=== PATIENT | female | born 1970 | race Hispanic/Latino ===

== ENCOUNTER 2022-10-18 15:13 | Emergency (ER) | payer OTHER ==
--- NOTE | 2022-10-18 15:41 | RAD REPORT ---
EXAM DESCRIPTION: CT - Head Brain Wo Cont - 10/18/2022 3:29 pm CLINICAL HISTORY: HEADACHE Headache, drowsiness COMPARISON: No comparisons TECHNIQUE: All CT scans are performed using dose optimization technique as appropriate and may inclu de automated exposure control or mA/KV adjustment according to patient size. FINDINGS: No intracranial hemorrhage, hydrocephalus or extra-axial fluid collection.No areas of brai n edema or evidence of midline shift. The paranasal sinuses and mastoids are clear. The calvarium is intact. IMPRESSION: No acute intracranial abnormality.
[2022-10-18] MEDS ORDERED: NA CHLORIDE 0.9% 1,000 ML ONE (15:50)
--- NOTE | 2022-10-18 16:21 | RAD REPORT ---
EXAM DESCRIPTION: RAD - Chest Single View - 10/18/2022 3:55 pm CLINICAL HISTORY: COUGH Chest pain. COMPARISON: No comparisons FINDINGS: Portable technique limits examination quality. The lungs are grossly clear. The heart is normal in size. No displaced fractures. IMPRESSION: No acute intrathoracic process suspected.
[2022-10-18] MEDS ORDERED: dexAMETHasone 10 MG/ML VIAL ONE (16:50)
[2022-10-18] MEDS ORDERED: MECLIZINE HCL 12.5 MG TAB ONE (16:51)
--- NOTE | 2022-10-18 16:56 | ER ---
Nurse's Notes [facility] Name: Louann Turcios Age: 52 yrs Sex: Female : 1970 Arrival Date: 10/18/2022 Time: 15:13 Bed 11 Private MD: Diagnosis: Dizziness and giddiness;Other peripheral vertigo-benign positional Presentation: 10/18 15:18 Chief complaint: Patient states: dizziness, headache, and high blood pressure x 1 week aa5 ago. Pt reports she started taking Losartan yesterday without improvement. Coronavirus screen: At this time, the client does not indicate any symptoms associated with coronavirus-19. Ebola Screen: Patient denies travel to an Ebola-affected area in the 21 days before illness onset. Initial Sepsis Screen: Does the patient meet any 2 criteria? No. Patient's initial sepsis screen is negative. Does the patient have a suspected source of infection? No. Patient's initial sepsis screen is negative. Risk Assessment: Do you want to hurt yourself or someone else? Patient reports no desire to harm self or others. Onset of symptoms was September 2022. 15:18 Method Of Arrival: Ambulatory aa5 15:18 Acuity: EPNNY 3 aa5 Triage Assessment: 17:35 Pain: Also complains of nausea. tf2 17:35 General: Behavior is calm. tf2 17:35 Headache History: The patient has had previous headaches and this one is different than tf2 previous episodes. General: Appears in no apparent distress. Pain: Pain currently is 5 out of 10 on a pain scale. Pain began gradually. Historical: - Allergies: 15:20 No Known Allergies; aa5 - Home Meds: 15:20 losartan 25 mg oral tablet [Active]; aa5 - PMHx: 15:20 Hypertensive disorder; aa5 - PSHx: 15:20 section; aa5 - Immunization history:: Adult Immunizations unknown. - Social history:: Smoking status: Patient denies any tobacco usage or history of. Screenin:42 [facility] ED Fall Risk Assessment (Adult) History of falling in the last 3 months, tf2 including since admission No falls in past 3 months (0 pts) Confusion or Disorientation No (0 pts) Intoxicated or Sedated No (0 pts) Impaired Gait No (0 pts) Mobility Assist Device Used No (0 pt) Altered Elimination No (0 pt) Score/Fall Risk Level 0 - 2 = Low Risk Oriented to surroundings, Maintained a safe environment, Educated pt \T\ family on fall prevention, incl call for assistance when getting out of bed. 17:35 Abuse screen: Denies threats or abuse. Denies injuries from another. Nutritional tf2 screening: No deficits noted. Tuberculosis screening: No symptoms or risk factors identified. Assessment: 15:42 General: Appears in no apparent distress. Pain: Complains of pain in headache Quality tf2 of pain is described as aching, Is continuous. Neuro: Reports dizziness, since days ago. Cardiovascular: No deficits noted. Respiratory: No deficits noted. GI: No deficits noted. : No deficits noted. EENT: No deficits noted. Derm: No deficits noted. Musculoskeletal: No deficits noted. Vital Signs: 15:18 BP 133 / 96; Pulse 69; Resp 16 S; Temp 97.8(TE); Pulse Ox 96% on R/A; Weight 56.25 kg aa5 (R); Height 5 ft. 0 in. (R); 15:42 BP 127 / 81; Pulse 65; Resp 16; Pulse Ox 100% on R/A; tf2 17:33 BP 110 / 76; Pulse 66; Resp 16; Pulse Ox 100% on R/A; tf2 15:18 Body Mass Index 24.22 (56.25 kg, 152.4 cm) aa5 [place] Coma Score: 15:42 Eye Response: spontaneous(4). Motor Response: obeys commands(6). Verbal Response: tf2 oriented(5). Total: 15. ED Course: 15:17 Patient arrived in ED. im 15:17 Dayo Pardees MD is Attending Physician. carly 15:18 Arm band placed on. aa5 15:19 Triage completed. aa5 15:23 Tatyana Vidal, FARIBA is Primary Nurse. tf2 15:30 CT Head Brain wo Cont In Process Unspecified. EDMS 15:42 No apparent distress. tf2 15:42 Patient has correct armband on for positive identification. Bed in low position. Call tf2 light in reach. Side rails up X 1. Provided Education on: procedures and medications being given. 15:42 No provider procedures requiring assistance completed. Inserted saline lock: 20 gauge tf2 in right antecubital area, using aseptic technique. 15:56 XRAY Chest (1 view) In Process Unspecified. EDMS 16:54 Hillary Grady MD is Referral Physician. [facility] 17:34 IV discontinued, intact, bleeding controlled, Pressure dressing applied. tf2 Administered Medications: 15:41 Drug: NS 0.9% IV 1000 ml Route: IV; Rate: 125 ml/hr; Site: left antecubital; tf2 17:23 Follow up: IV Status: Completed infusion tf2 16:45 Drug: Decadron - Dexamethasone IVP 10 mg Route: IVP; Site: right antecubital; tf2 17:22 Follow up: Response: No adverse reaction tf2 16:46 Drug: Meclizine PO 50 mg Route: PO; tf2 17:22 Follow up: Response: No adverse reaction tf2 Medication: 15:42 VIS not applicable for this client. tf2 Outcome: 16:55 Discharge ordered by . [facility] 17:34 Discharged to home ambulatory. tf2 17:34 Condition: stable 17:34 Discharge instructions given to patient, Instructed on discharge instructions, follow up and referral plans. medication usage, Demonstrated understanding of instructions, follow-up care, medications, Prescriptions given X 3. 17:36 Patient left the ED. tf2 Signatures: Dispatcher [employer] Dayo Hair MD MD cha Calderon, Audri, RN RN [email or web address] Luz Elena Felix Traci, RN RN tf2
--- NOTE | 2022-10-18 16:56 | EDPHYS ---
Physician Documentation [facility] Name: Louann Turcios Age: 52 yrs Sex: Female : 1970 Arrival Date: 10/18/2022 Time: 15:13 Bed 11 Private MD: ED Physician Dayo Paredes HPI: 10/18 16:34 This 52 yrs old Female presents to ER via Ambulatory with complaints of carly Dizziness, Headache, BLOOD PRESSURE ISSUE. 16:34 The patient presents with dizziness, sense of spinning. Onset: The symptoms/episode carly began/occurred 1 week(s) ago. Context: occurred at a hospital. Modifying factors: The symptoms are alleviated by closing eyes, holding head still, the symptoms are aggravated by movement of head, standing up, changing position. Associated signs and symptoms: Pertinent positives:. Severity of symptoms: At their worst the symptoms were mild moderate in the emergency department the symptoms. Historical: - Allergies: 15:20 No Known Allergies; aa5 - Home Meds: 15:20 losartan 25 mg oral tablet [Active]; aa5 - PMHx: 15:20 Hypertensive disorder; aa5 - PSHx: 15:20 section; aa5 - Immunization history:: Adult Immunizations unknown. - Social history:: Smoking status: Patient denies any tobacco usage or history of. ROS: 16:51 Constitutional: Negative for fever, chills, and weight loss, Eyes: Negative for injury, carly pain, redness, and discharge, ENT: Negative for injury, pain, and discharge, Neck: Negative for injury, pain, and swelling, Cardiovascular: Negative for chest pain, palpitations, and edema, Respiratory: Negative for shortness of breath, cough, wheezing, and pleuritic chest pain, Abdomen/GI: Negative for abdominal pain, nausea, vomiting, diarrhea, and constipation, Back: Negative for injury and pain, : Negative for injury, bleeding, discharge, and swelling, MS/Extremity: Negative for injury and deformity, Skin: Negative for injury, rash, and discoloration, Psych: Negative for depression, anxiety, suicide ideation, homicidal ideation, and hallucinations, Allergy/Immunology: Negative for hives, rash, and allergies, Endocrine: Negative for neck swelling, polydipsia, polyuria, polyphagia, and marked weight changes. 16:51 Neuro: Positive for dizziness. Exam: 16:51 Constitutional: This is a well developed, well nourished patient who is awake, alert, carly and in no acute distress. Head/Face: Normocephalic, atraumatic. Eyes: Pupils equal round and reactive to light, extra-ocular motions intact. Lids and lashes normal. Conjunctiva and sclera are non-icteric and not injected. Cornea within normal limits. Periorbital areas with no swelling, redness, or edema. ENT: Nares patent. No nasal discharge, no septal abnormalities noted. Tympanic membranes are normal and external auditory canals are clear. Oropharynx with no redness, swelling, or masses, exudates, or evidence of obstruction, uvula midline. Mucous membranes moist. Neck: Trachea midline, no thyromegaly or masses palpated, and no cervical lymphadenopathy. Supple, full range of motion without nuchal rigidity, or vertebral point tenderness. No Meningismus. Chest/axilla: Normal chest wall appearance and motion. Nontender with no deformity. No lesions are appreciated. Cardiovascular: Regular rate and rhythm with a normal S1 and S2. No gallops, murmurs, or rubs. Normal PMI, no JVD. No pulse deficits. Respiratory: Lungs have equal breath sounds bilaterally, clear to auscultation and percussion. No rales, rhonchi or wheezes noted. No increased work of breathing, no retractions or nasal flaring. Abdomen/GI: Soft, non-tender, with normal bowel sounds. No distension or tympany. No guarding or rebound. No evidence of tenderness throughout. Back: No spinal tenderness. No costovertebral tenderness. Full range of motion. Skin: Warm, dry with normal turgor. Normal color with no rashes, no lesions, and no evidence of cellulitis. MS/ Extremity: Pulses equal, no cyanosis. Neurovascular intact. Full, normal range of motion. Neuro: Awake and alert, GCS 15, oriented to person, place, time, and situation. Cranial nerves II-XII grossly intact. Motor strength 5/5 in all extremities. Sensory grossly intact. Cerebellar exam normal. Normal gait. Psych: Awake, alert, with orientation to person, place and time. Behavior, mood, and affect are within normal limits. 17:15 ECG was reviewed by the Attending Physician. [facility] Vital Signs: 15:18 BP 133 / 96; Pulse 69; Resp 16 S; Temp 97.8(TE); Pulse Ox 96% on R/A; Weight 56.25 kg aa5 (R); Height 5 ft. 0 in. (R); 15:42 BP 127 / 81; Pulse 65; Resp 16; Pulse Ox 100% on R/A; tf2 17:33 BP 110 / 76; Pulse 66; Resp 16; Pulse Ox 100% on R/A; tf2 15:18 Body Mass Index 24.22 (56.25 kg, 152.4 cm) aa5 [place] Coma Score: 15:42 Eye Response: spontaneous(4). Motor Response: obeys commands(6). Verbal Response: tf2 oriented(5). Total: 15. MDM: 15:17 Patient medically screened. carly 16:52 Differential diagnosis: cardiac arrhythmia, CVA, generalized weakness, hypovolemia, carly idiopathic dizziness, TIA, vertigo. Data reviewed: vital signs, nurses notes, lab test result(s), EKG, radiologic studies, CT scan, plain films. Consideration of Admission/Observation Escalation of care including admission/observation considered. I considered the following discharge prescriptions or medication management in the emergency department Medications were administered in the Emergency Department. See MAR. Independent interpretation of the following test(s) in the Emergency Department EKG: See my EKG interpretation above. Test considered but Not performed: MRI: no mri brain. Care significantly affected by the following chronic conditions: Hypertension. 10/18 15:18 Order name: Basic Metabolic Panel; Complete Time: 17:21 [facility] 10/18 15:18 Order name: CBC with Diff; Complete Time: 17:14 [facility] 10/18 15:18 Order name: LFT's; Complete Time: 17:21 [facility] 10/18 15:18 Order name: Magnesium; Complete Time: 17:21 [facility] 10/18 15:18 Order name: NT PRO-BNP; Complete Time: 17:21 [facility] 10/18 15:18 Order name: PT-INR; Complete Time: 17:14 [facility] 10/18 15:18 Order name: Troponin HS; Complete Time: 17:21 [facility] 10/18 15:18 Order name: Urinalysis w/ reflexes; Complete Time: 17:14 [facility] 10/18 15:18 Order name: XRAY Chest (1 view); Complete Time: 16:33 [facility] 10/18 15:20 Order name: CT Head Brain wo Cont; Complete Time: 15:49 [facility] 10/18 15:18 Order name: EKG; Complete Time: 15:19 [facility] 10/18 15:18 Order name: Cardiac monitoring; Complete Time: 15:41 [facility] 10/18 15:18 Order name: EKG - Nurse/Tech; Complete Time: 15:41 [facility] 10/18 15:18 Order name: IV Saline Lock; Complete Time: 15:41 [facility] 10/18 15:18 Order name: Labs collected and sent; Complete Time: 15:41 [facility] 10/18 15:18 Order name: O2 Per Protocol; Complete Time: 17:36 [facility] 10/18 15:18 Order name: O2 Sat Monitoring; Complete Time: 15:41 [facility] EC:15 Rate is 62 beats/min. Rhythm is regular. QRS [place] is Normal. UT interval is normal. QRS carly interval is normal. QT interval is normal. No Q waves. T waves are Normal. No ST changes noted. Clinical impression: NSR w/ Non-specific ST/T Changes and No evidence of ischemia. Interpreted by me. Reviewed by me. Administered Medications: 15:41 Drug: NS 0.9% IV 1000 ml Route: IV; Rate: 125 ml/hr; Site: left antecubital; tf2 17:23 Follow up: IV Status: Completed infusion tf2 16:45 Drug: Decadron - Dexamethasone IVP 10 mg Route: IVP; Site: right antecubital; tf2 17:22 Follow up: Response: No adverse reaction tf2 16:46 Drug: Meclizine PO 50 mg Route: PO; tf2 17:22 Follow up: Response: No adverse reaction tf2 Disposition Summary: 10/18/22 16:55 Discharge Ordered Location: Home carly Problem: new carly Symptoms: have improved carly Condition: Stable carly Diagnosis - Dizziness and giddiness carly - Other peripheral vertigo - benign positional carly Followup: carly - With: Private Physician - When: 2 - 3 days - Reason: Recheck today's complaints, Continuance of care, Re-evaluation by your physician Followup: carly - With: Hillary Grady MD - When: Tomorrow - Reason: Recheck today's complaints, Re-evaluation by your physician Discharge Instructions: - Discharge Summary Sheet carly - Benign Positional Vertigo carly - Dizziness carly - Near-Syncope carly - Vertigo carly - Tilt Table Test carly - Vertigo, [id number]-[id number] carly - Motion Sickness, [id number] carly - Dizziness, [id number]-[id number] carly Forms: - Medication Reconciliation Form carly - Thank You Letter carly - Antibiotic Education carly - Prescription Opioid Use carly - Patient Portal Instructions carly - Leadership Thank You Letter carly Prescriptions: - dexamethasone 2 mg Oral tablet - take 1 tablet by ORAL route every 12 hours; 8 tablet; Refills: 0, Product [facility] Selection Permitted - ondansetron 4 mg Oral Tablet,disintegrating - take 1 tablet by ORAL route every 8 hours; 20 tablet; Refills: 0, Product carly Selection Permitted - Meclizine 25 mg Oral Tablet - take 1 tablet by ORAL route every 8 hours As needed; 30 tablet; Refills: 0, [facility] Product Selection Permitted Signatures: Dispatcher [employer] Dayo Hair MD MD cha Calderon, Audri, RN RN aa5 Tatyana Vidal RN RN tf2
[2022-10-18 16:59] LABS: Specific Gravity 1.024 (1.005-1.030); Urine Bacteria None Seen /HPF (<20); Urine Bilirubin NEGATIVE (Negative); Urine Blood 2+ (Negative); Urine Clarity Clear (Clear); Urine Color Light-Yellow (Yellow); Urine Glucose NEGATIVE (Negative); Urine Protein NEGATIVE (Negative); Urine Urobilinogen Normal (Normal); Urine pH 6.5 (5.0-7.0)
[2022-10-18 17:01] LABS: Protime INR 0.99
[2022-10-18 17:02] LABS: Absolute Lymphocytes (CBC) 2.4 K/uL (0.7-4.9); Hematocrit 41.2 % (36.0-45.0); Lymphocytes % 28.5 % (15.3-44.8); MCV 90.1 fL (80-100); MPV 8.4 fL (7.6-11.3); Platelets 299 thou/uL (152-406); RBC Red Blood Cell Count 4.57 M/uL (3.86-4.86)
[2022-10-18 17:16] LABS: ALT/SGPT 25 U/L (13-56); AST/SGOT 14 U/L (15-37); Albumin 3.7 g/dL (3.4-5.0); Alkaline Phosphatase 102 U/L (45-117); BUN Blood Urea Nitrogen 18 mg/dL (7-18); Bicarbonate 27 mEq/L (21-32); Bilirubin Total 0.3 mg/dL (0.2-1.0); Glomerular Filtration Rate 52 ml/min (=/>90); Glucose Level 79 mg/dL (74-106); Magnesium 2.1 mg/dL (1.6-2.4); NT PRO-BNP 45 pg/mL (<125); Potassium 4.1 mEq/L (3.5-5.1); Protein, Total 7.1 g/dL (6.4-8.2); Sodium Level 139 mEq/L (136-145); Troponin High Sensitivity 3.6 pg/mL (<58.9)
[2022-10-18 17:18] LABS: Bilirubin Direct < 0.1 mg/dL (0-0.2); Bilirubin Indirect, Calculated ND mg/dL (0.2-0.8)
[2022-10-18 17:59] VITALS: TEMP 97.8
[2022-10-18 18:09] VITALS: O2SAT 100
[2022-10-18 18:10] VITALS: BP 110/76
--- NOTE | 2022-10-19 12:58 | EKG ---
Test Date: 2022-10-18 Test Time: 17:06:04 Public Relations Account Supervisor: ESTRELLITA MEASUREMENT RESULTS: Intervals: Rate: 62 TX: 146 QRSD: 76 QT: 402 QTc: 408 [place]: P: 63 TX: 146 QRS: 79 T: 54 INTERPRETIVE STATEMENTS: Normal sinus rhythm Normal ECG Compared to ECG 10/18/2022 17:05:37 No significant changes Electronically Signed On 10-19-22 12:55:55 CDT by Shawn Cano
--- NOTE | 2022-10-19 12:58 | EKG ---
Test Date: 2022-10-18 Test Time: 17:05:37 [employer] Supervisor: TF MEASUREMENT RESULTS: Intervals: Rate: 65 IA: 148 QRSD: 80 QT: 402 QTc: 418 [place]: P: 60 IA: 148 QRS: 79 T: 54 INTERPRETIVE STATEMENTS: Normal sinus rhythm Normal ECG No previous ECG available for comparison Electronically Signed On 10-19-22 12:55:57 CDT by Shawn Cano
== END 2022-10-18 17:36 | disposition home or self-care (01) ==
LOC: MERGE 15:13 → ER 15:13
DX: H81.10 Benign paroxysmal vertigo, unspecified ear (principal); I10 Essential (primary) hypertension
CPT/HCPCS: 96361; 93005 ×2; 85025; 81001; 80048; 36415; 83735; 85610; 80076; 84484; 83880; 70450; 71045; 96374; 99284; J8597; J1100; J7030

== ENCOUNTER 2023-08-08 09:41 | Emergency (ER) | payer OTHER ==
[2023-08-08] MEDS ORDERED: ASPIRIN 81 MG CHEWABLE TABLET ONE (09:59)
[2023-08-08 10:14] LABS: Absolute Basophils 0.1 K/uL (0-0.5); Absolute Lymphocytes (CBC) 1.8 K/uL (0.7-4.9); Absolute Monocytes 0.6 K/uL (0.1-1.3); Absolute Neutrophil 11.9 K/uL (1.8-8.0); Basophils % 0.9 % (0-1.3); Eosinophils % 0.3 % (0-4.4); Hematocrit 43.5 % (36.0-45.0); Hemoglobin 14.5 g/dL (12.0-15.0); Lymphocytes % 12.2 % (15.3-44.8); MCH 29.9 pg (27.0-35.0); MCHC 33.3 g/dL (32.0-36.0); MCV 89.6 fL (80-100); MPV 7.8 fL (7.6-11.3); Monocytes % 4.3 % (3.3-12.3); Neutrophils % 82.3 % (41.7-73.7); Platelets 317 thou/uL (152-406); RBC Red Blood Cell Count 4.85 M/uL (3.86-4.86); Red Cell Distribution Width 12.9 % (12.1-15.2)
[2023-08-08 10:18] LABS: PT Prothrombin Time 11.2 SECONDS (9.5-12.5); Protime INR 1.02
[2023-08-08 10:35] LABS: Magnesium 2.1 mg/dL (1.6-2.4); Troponin High Sensitivity 9.9 pg/mL (<58.9)
--- NOTE | 2023-08-08 11:04 | RAD REPORT ---
EXAM DESCRIPTION: Kavya Single View08/08/2023 10:43 am CLINICAL HISTORY: Chest pain COMPARISON: none FINDINGS: The lungs appear clear of acute infiltrate. The heart is normal size IMPRESSION: No acute abnormalities displayed
--- NOTE | 2023-08-08 11:57 | ER ---
Nurse's Notes [facility] Name: Louann Turcios Age: 53 yrs Sex: Female : 1970 Arrival Date: 08/08/2023 Time: 09:41 Bed 2 Private MD: Diagnosis: Chest pain, unspecified;Essential (primary) hypertension Presentation: 08/07 09:51 Chief complaint: Patient states: High BP for 1 week (higher than her normal). Started ll1 to have CP today. Feels shaky, nausea, blurred vision off/on for 1 week. Coronavirus screen: Client denies travel out of the [place] in the last 14 days. fatigue, nausea. 09:51 Method Of Arrival: Ambulatory ll1 09:53 Ebola Screen: Patient denies travel to an Ebola-affected area in the 21 days before ll1 illness onset. Initial Sepsis Screen: Does the patient meet any 2 criteria? No. Patient's initial sepsis screen is negative. Does the patient have a suspected source of infection? No. Patient's initial sepsis screen is negative. Risk Assessment: Do you want to hurt yourself or someone else? Patient reports no desire to harm self or others. Onset of symptoms was August 01, 2023. 09:53 Acuity: PENNY 3 ll1 Triage Assessment: 09:54 General: Appears distressed, uncomfortable, Behavior is cooperative, appropriate for ll1 age, anxious. General: Reports feeling ill for fatigue for. Pain: Complains of pain in chest Pain currently is 8 out of 10 on a pain scale. Quality of pain is described as aching, pressure, Pain began. Neuro: Reports. Cardiovascular: Reports chest pain, fatigue, nausea. Respiratory: Reports shortness of breath. GI: Reports nausea. Historical: - Allergies: 12:17 No Known Allergies; db - PMHx: 09:43 Hypertensive disorder; ll1 - PSHx: 09:43 section; ll1 - Immunization history:: Adult Immunizations up to date. - Infectious Disease History:: Denies. - Social history:: Smoking status: Patient denies any tobacco usage or history of. Screenin:08 [facility] ED Fall Risk Assessment (Adult) History of falling in the last 3 months, kc6 including since admission No falls in past 3 months (0 pts) Confusion or Disorientation No (0 pts) Intoxicated or Sedated No (0 pts) Impaired Gait No (0 pts) Mobility Assist Device Used No (0 pt) Altered Elimination No (0 pt) Score/Fall Risk Level 0 - 2 = Low Risk. Abuse screen: Denies threats or abuse. Denies injuries from another. Nutritional screening: No deficits noted. Tuberculosis screening: No symptoms or risk factors identified. Assessment: 10:10 General: Appears in no apparent distress. comfortable, well groomed, well developed, kc6 Behavior is cooperative, anxious. Pain: Complains of pain in chest Pain does not radiate. Neuro: Level of Consciousness is awake, alert, obeys commands, Oriented to person, place, time, situation, Appropriate for age Reports headache. Cardiovascular: Reports chest pain, shortness of breath, Heart tones S1 S2 present Capillary refill < 3 seconds Rhythm is sinus rhythm. Respiratory: Airway is patent Trachea midline Respiratory effort is even, unlabored, Respiratory pattern is regular, symmetrical, Breath sounds are clear bilaterally. GI: Reports nausea, Patient currently denies abdominal pain, diarrhea, vomiting. : No signs and/or symptoms were reported regarding the genitourinary system. Urine is clear. EENT: No signs and/or symptoms were reported regarding the EENT system. Derm: No signs and/or symptoms reported regarding the dermatologic system. Skin is intact, is healthy with good turgor, Skin is pink, warm \T\ dry. Musculoskeletal: No signs and/or symptoms reported regarding the musculoskeletal system. Circulation, motion, and sensation intact. Capillary refill < 3 seconds, Range of motion: intact in all extremities. 11:16 Reassessment: Patient appears in no apparent distress at this time. No changes from kc6 previously documented assessment. Patient and/or family updated on plan of care and expected duration. Pain level reassessed. Patient is alert, oriented x 3, equal unlabored respirations, skin warm/dry/pink. Patient states feeling better. Patient states symptoms have improved. 12:17 Reassessment: Patient appears in no apparent distress at this time. Patient and/or db family updated on plan of care and expected duration. Pain level reassessed. Patient is alert, oriented x 3, equal unlabored respirations, skin warm/dry/pink. Vital Signs: 09:53 BP 179 / 119; Pulse 89; Resp 26; Temp 97; Pulse Ox 100% on R/A; Weight 64.41 kg; Height ll1 5 ft. 0 in. ; Pain 8/10; 10:09 BP 151 / 98; Pulse 80; Resp 20 S; Pulse Ox 100% on R/A; kc6 11:17 BP 136 / 93; Pulse 79; Resp 18 S; Pulse Ox 98% on R/A; kc6 12:00 BP 162 / 106; Pulse 70; Resp 18; Pulse Ox 96% ; db 09:53 Body Mass Index 27.73 (64.41 kg, 152.4 cm) ll1 09:53 Pain Scale: Adult ll1 ED Course: 09:42 Patient arrived in ED. rg4 09:43 Arm band placed on Patient placed in an exam room, on a stretcher. ll1 09:45 Frantz Navarro DO is Attending Physician. ms3 09:54 Triage completed. ll1 10:08 Becky Ryder, RN is Primary Nurse. kc6 10:08 Inserted saline lock: 20 gauge in right antecubital area, using aseptic technique. kc6 Blood collected. 10:09 Patient has correct armband on for positive identification. Bed in low position. Call kc6 light in reach. Side rails up X 1. Adult w/ patient. monitor technician on. Pulse ox on. NIBP on. Door closed. Noise minimized. Lights dimmed. Pillow given. 10:45 XRAY Chest (1 view) In Process Unspecified. EDMS 11:16 Troponin High Sensitivity Sent. kc6 11:56 Moose Milligan DO is Referral Physician. ms3 12:17 Provided Education on: DISCHARGE. db 12:17 No provider procedures requiring assistance completed. IV discontinued, intact, db bleeding controlled, No redness/swelling at site. O2 via ROOM AIR. Administered Medications: 10:08 Drug: Aspirin PO Chewable Tablet 324 mg PO once; 81 mg tablets x 4 Route: PO; kc6 11:16 Follow up: Response: No adverse reaction kc6 Medication: 12:17 VIS not applicable for this client. db Outcome: 11:56 Discharge ordered by . ms3 12:17 Discharged to home ambulatory, with family, db 12:17 Condition: stable 12:17 Discharge instructions given to patient, Instructed on discharge instructions, follow up and referral plans. 12:18 Patient left the ED. db Signatures: Dispatcher [employer] EDServando Bundyi rg4 Vishnu Rojo RN RN ll1 Frantz Navarro, DO ms3 Becky Ryder RN RN kc6 Annelise Bocanegra, RN RN db Corrections: (The following items were deleted from the chart) 09:57 09:53 BP 179 / 119; Pulse 89bpm; Resp 26bpm; Pulse Ox 100% RA; Temp 97F; Pain 8/10, ll1 Adult; ll1 11:17 11:16 Reassessment: Patient appears in no apparent distress at this time. No changes kc6 from previously documented assessment. Patient and/or family updated on plan of care and expected duration. Pain level reassessed. Patient is alert, oriented x 3, equal unlabored respirations, skin warm/dry/pink. kc6
--- NOTE | 2023-08-08 11:57 | EDPHYS ---
Physician Documentation [facility] Name: Louann Turcios Age: 53 yrs Sex: Female : 1970 Arrival Date: 08/08/2023 Time: 09:41 Bed 2 Private MD: ED Physician Frantz Navarro HPI: 08/07 10:12 This 53 yrs old Female presents to ER via Ambulatory with complaints of Chest ms3 Tightness, High Blood Pressure, Headache. 10:12 53-year-old female with past medical history of hypertension presents to the emergency ms3 department for high blood pressure for 1 week and chest tightness that began on her way to the emergency department. Patient states her discomfort is a 9/10. Patient endorses nausea, dizziness, shortness of breath, feeling flushed. Patient denies fevers or chills. Patient denies any alleviating or inciting factors. Historical: - Allergies: 12:17 No Known Allergies; db - PMHx: 09:43 Hypertensive disorder; ll1 - PSHx: 09:43 section; ll1 - Immunization history:: Adult Immunizations up to date. - Infectious Disease History:: Denies. - Social history:: Smoking status: Patient denies any tobacco usage or history of. ROS: 10:12 Constitutional: Negative for fever, and chills. Neck: Negative for injury, pain, and ms3 swelling, 10:12 Cardiovascular: Positive for chest pain, 10:12 Abdomen/GI: Positive for nausea, Exam: 10:12 Constitutional: This is a well developed, well nourished patient who is awake, alert, ms3 and in no acute distress. Chest/axilla: Normal chest wall appearance and motion. Nontender with no deformity. Cardiovascular: Regular rate and rhythm with a normal S1 and S2. No gallops, murmurs, or rubs. Normal PMI, no JVD. No pulse deficits. Respiratory: Lungs have equal breath sounds bilaterally, clear to auscultation and percussion. No rales, rhonchi or wheezes noted. No increased work of breathing, no retractions or nasal flaring. Abdomen/GI: Soft, non-tender, with normal bowel sounds. No distension or tympany. No guarding or rebound. No evidence of tenderness throughout. Skin: Warm, dry with normal turgor. Normal color with no rashes, no lesions, and no evidence of cellulitis. MS/ Extremity: Pulses equal, no cyanosis. Neurovascular intact. Full, normal range of motion. Neuro: Awake and alert, GCS 15, oriented to person, place, time, and situation. Cranial nerves II-XII grossly intact. Motor strength 5/5 in all extremities. Sensory grossly intact. Cerebellar exam normal. Normal gait. 10:12 ECG was reviewed by the Attending Physician. ms3 Vital Signs: 09:53 BP 179 / 119; Pulse 89; Resp 26; Temp 97; Pulse Ox 100% on R/A; Weight 64.41 kg; Height ll1 5 ft. 0 in. ; Pain 8/10; 10:09 BP 151 / 98; Pulse 80; Resp 20 S; Pulse Ox 100% on R/A; kc6 11:17 BP 136 / 93; Pulse 79; Resp 18 S; Pulse Ox 98% on R/A; kc6 12:00 BP 162 / 106; Pulse 70; Resp 18; Pulse Ox 96% ; db 09:53 Body Mass Index 27.73 (64.41 kg, 152.4 cm) ll1 09:53 Pain Scale: Adult ll1 MDM: 10:11 Patient medically screened. ms3 10:12 Differential diagnosis: abnormal EKG, acute myocardial infarction, Hypertension. ms3 11:52 HEART Score: History: Slightly Suspicious (0), ECG: Normal (0), Age: > 45 and < 65 ms3 years (1), Risk Factors: 1 or 2 risk factors (1), [Hypertension] Troponin: < or = 1 x Normal Limit (0), Total Score = 2. The patient was given aspirin in the Emergency Department. 11:57 Data reviewed: vital signs, nurses notes, lab test result(s), EKG, radiologic studies, ms3 plain films. I considered the following discharge prescriptions or medication management in the emergency department Medications were administered in the Emergency Department. See MAR. Independent interpretation of the following test(s) in the Emergency Department EKG: See my EKG interpretation above X-Ray: My interpretation is CXR image reviewed by me does not reveal PNA, pulmonary edema. Counseling: I had a detailed discussion with the patient and/or guardian regarding the historical points, exam findings, and any diagnostic results supporting the discharge/admit diagnosis, lab results, radiology results, the need for outpatient follow up, to return to the emergency department if symptoms worsen or persist or if there are any questions or concerns that arise at home. Special discussion: Based on the patient's history, exam, and Dx evaluation, there is no indication for emergent intervention or inpatient Tx. It is understood by the patient/guardian that if the Sx's persist or worsen they need to return immediately for re-evaluation. ED course: Discussed labs, EKG, chest x-ray with patient. Patient states she is currently on steroids which likely reflects elevated white blood count. Patient states her creatinine and GFR are being monitored by her primary care physician at this time. Patient to follow-up with primary care physician in 2 to 3 days. All questions were answered. Return precautions discussed include worsening symptoms, or any other concerns. On reevaluation patient is alert and oriented x 4, no apparent distress, nontoxic-appearing, speaking full sentences. 08/07 09:52 Order name: Basic Metabolic Panel; Complete Time: 11:05 ms3 08/07 09:52 Order name: CBC with Diff; Complete Time: 11:05 ms3 08/07 09:52 Order name: Magnesium; Complete Time: 11:05 ms3 08/07 09:52 Order name: PT-INR; Complete Time: 11:05 ms3 08/07 09:52 Order name: Troponin HS; Complete Time: 11:05 ms3 08/07 09:52 Order name: D-Dimer; Complete Time: 11:05 ms3 08/07 11:06 Order name: Troponin High Sensitivity; Complete Time: 11:51 ms3 08/07 09:52 Order name: XRAY Chest (1 view); Complete Time: 11:05 ms3 08/07 09:52 Order name: Cardiac monitoring; Complete Time: 10:08 ms3 08/07 09:52 Order name: EKG - Nurse/Tech; Complete Time: 10:08 ms3 08/07 09:52 Order name: IV Saline Lock; Complete Time: 10:08 ms3 08/07 09:52 Order name: Labs collected and sent; Complete Time: 10:08 ms3 08/07 09:52 Order name: O2 Per Protocol; Complete Time: 09:58 ms3 08/07 09:52 Order name: O2 Sat Monitoring; Complete Time: 09:58 ms3 EC:12 Rate is 80 beats/min. Rhythm is regular. QRS [place] is Normal. [place] interval is normal. QRS ms3 interval is normal. QT interval is normal. Clinical impression: Normal ECG. Interpreted by me. Reviewed by me. Administered Medications: 10:08 Drug: Aspirin PO Chewable Tablet 324 mg PO once; 81 mg tablets x 4 Route: PO; kc6 11:16 Follow up: Response: No adverse reaction kc6 Disposition Summary: 08/08/23 11:56 Discharge Ordered Notes: Location: Home ms3 Condition: Stable ms3 Diagnosis - Chest pain, unspecified ms3 - Essential (primary) hypertension ms3 Followup: ms3 - With: Moose Milligan DO - When: 2 - 3 days - Reason: Recheck today's complaints Discharge Instructions: - Discharge Summary Sheet ms3 - Nonspecific Chest Pain, Adult ms3 - Hypertension, Adult ms3 - DASH Eating Plan ms3 Forms: - Medication Reconciliation Form ms3 - Antibiotic Education ms3 - Prescription Opioid Use ms3 - Patient Portal Instructions ms3 - Leadership Thank You Letter ms3 Signatures: Dispatcher [employer] EDMS Vishnu Rojo, RN RN ll1 Frantz Navarro DO DO ms3 Becky Ryder RN RN kc6 Annelise Bocanegra, RN RN db Corrections: (The following items were deleted from the chart) 11:06 11:06 Troponin High Sensitivity+[id number].[email or web address] ordered. EDMT EDMS
[2023-08-08 12:52] VITALS: BP 136/93; TEMP 97; O2SAT 98
--- NOTE | 2023-08-10 12:16 | EKG ---
Test Date: 2023-08-08 Test Time: 09:59:44 Ring Sewer: VANW MEASUREMENT RESULTS: Intervals: Rate: 80 CT: 128 QRSD: 80 QT: 328 QTc: 378 [place]: P: 78 CT: 128 QRS: 89 T: 71 INTERPRETIVE STATEMENTS: Normal sinus rhythm Normal ECG Compared to ECG 10/18/2022 17:06:04 No significant changes Electronically Signed On 08-10-23 12:14:36 CDT by Patrice Murillo
== END 2023-08-08 12:18 | disposition home or self-care (01) ==
LOC: ER 09:41
DX: R07.89 Other chest pain (principal); I10 Essential (primary) hypertension
CPT/HCPCS: 36415; 71045; 80048; 83735; 84484; 85025; 85379; 85610; 93005; 99285